=== PATIENT | male | born 2000 | race Caucasian/White ===

== ENCOUNTER 2025-01-12 08:38 | Outpatient (CLI) | payer BC, SELFPAY | END 2025-01-12 08:39 | disposition home or self-care (01) | PROVIDERS: PCP Physician Assistant Medical; Visit Provider Physician Assistant Medical | DX: Z00.00 Encounter for general adult medical examination without abnormal findings (principal); E66.811 Obesity, class 1; R42 Dizziness and giddiness; Z11.3 Encounter for screening for infections with a predominantly sexual mode of transmission; Z11.4 Encounter for screening for human immunodeficiency virus [HIV]; Z11.59 Encounter for screening for other viral diseases | CPT/HCPCS: 80053; 84443; 86592; 86703; 86706; 86803; 87340; 87491; 87591 ==